=== PATIENT | female | born 1950 ===

== ENCOUNTER 2017-01-05 07:34 | Day surgery (SDC) | payer BC ==
[2016-12-27 10:49] VITALS: BMI 29.9
[2017-01-05] MEDS ORDERED: Propofol 10 mg/ml Inj (20 ML) ONE (08:40)
[2017-01-05] MEDS ORDERED: Lactated Ringer's 1,000 ML IV SCH (09:15)
[2017-01-05 10:13] VITALS: BP 149/69; PULSE 65; RESP 16; TEMP 97.7; O2SAT 96
== END 2017-01-05 10:34 | disposition home or self-care (01) ==
LOC: ENDO 07:34
PROVIDERS: ATTEND Internal Medicine Gastroenterology
DX: Z12.11 Encounter for screening for malignant neoplasm of colon (principal); K63.5 Polyp of colon; K64.0 First degree hemorrhoids; I10 Essential (primary) hypertension
CPT/HCPCS: 45385; 88305; J2704; J7040; J7120